=== PATIENT | female | born 2000 | race Caucasian/White ===

== ENCOUNTER 2020-10-11 10:09 | Emergency (ER) | payer OTHER, SELFPAY ==
--- NOTE | ~2020-10-11 | CT_ITS ---
EXAMINATION: CT brain wo con INDICATION: Head injury and vomiting COMPARISON: None TECHNIQUE: Standard unenhanced head CT. The dose-length product (DLP) was 605.33 mGy-cm. The mA was a djusted according to patient size. Iterative reconstruction technique was employed. FINDINGS: There is no intracranial hemorrhage, acute infarction, or abnormal mass lesion. The ventric les are normal. There is no abnormal mass effect or midline shift. The camacho-white matter differentiat ion is normal. The basal cisterns are patent. The orbits are normal. There is a tiny polyp in the lef t sphenoid sinus. IMPRESSION: 1. No acute intracranial abnormality. Reviewed, dictated and finalized at location A.
[2020-10-11 10:24] VITALS: BP 127/72; PULSE 67; RESP 15; TEMP 37.1; O2SAT 99
[2020-10-11 10:55] VITALS: BP 120/74; PULSE 70; RESP 15; O2SAT 100
--- NOTE | 2020-10-11 10:55 | PC.NURSE ---
Pt to CT.
--- NOTE | 2020-10-11 10:59 | ED.HEATRA ---
HPI - Head Injury General Chief complaint: Head Injury Stated complaint: head injury Time Seen by Provider: 10/11/20 10:35 Source: patient and RN notes reviewed Mode of arrival: ambulatory Limitations: no limitations History of Present Illness HPI Narrative: This is a 20 year old female who presents for evaluation of a head injury. She states last night she was walking her dog when she was yanked into a pole. She hit the right posterior side of head last night around 1900. She denies LOC. She states she had mild headache last night. Today she reports headache, dizziness, and multiple episodes of vomiting. She reports he has headache now from vomiting. She denies focal weakness, numbness, tingling. She denies abdominal pain or diarrhea. Related Data Allergies Allergy/AdvReac Type Severity Reaction Status Date / Time hydrocodone Allergy Unknown Nausea And Verified 10/11/20 10:27 Vomiting vancomycin Allergy Unknown Hives / Verified 10/11/20 10:27 Red Face amoxicillin Allergy Hives Verified 10/11/20 10:27 acetaminophen AdvReac Unknown Vomiting Verified 10/11/20 10:27 Cat Dander Allergy Unknown unknown Uncoded 06/28/20 14:19 Dog Dander Allergy Unknown Unknown Uncoded 06/28/20 14:19 Molds and Smuts Allergy Unknown Unknown Uncoded 06/28/20 14:19 Review of Systems Review of Systems: All systems reviewed & are unremarkable except as noted in HPI and below PMFSH Past Medical History Medical History (Updated 10/11/20 @ 12:33 by Korina Gutiérrez MD) Anxiety Surgical History Surgical History H/O knee surgery [place] teeth removed Family History Family History Mother Family history of mental disorder Grandparent Hypertension Family history of malignant neoplasm of breast Sibling Family history of anemia Social History Social History Smoking status: Never smoker Second hand tobacco smoke exposure: No Alcohol intake: never Exam Const: General: no acute distress and alert Orientation/consciousness: patient oriented x3 HENMT: Head: normocephalic and atraumatic Face and sinus: normal facial exam, sinuses nontender and face symmetric Mouth: Yes Normal oral and palatal mucosa present, Yes lip normal, Yes oropharynx normal and Yes moist mucous membranes Eyes: Pupils: Equal, round and reactive pupils present EOM: EOMs intact bilaterally Resp: Effort & Inspection: normal respiratory effort and no retractions Auscultation: clear to auscultation bilaterally Cardio: Rate: regular rate Rhythm: regular rhythm Heart sounds: no murmurs GI: GI Palp: Yes Soft to palpation, No Tenderness to palpation present (GI) and No Guarding due to palpation present (GI) Auscultation: normal bowel sounds Skin: General skin exam: normal color Rashes: no rashes Neuro: General: patient oriented x3 and moves all extremities Cranial nerves: Yes CN's II-XII intact bilaterally Psych: Mental Status: mental status grossly normal Affect: normal affect Course Reevaluation(s) Reevaluation #1: Patient states she feels better. I discussed CT scan was unremarkable. Date: 10/11/20 Time: 12:32 Vital Signs Vital signs: Vital Signs Temperature 98.7 F 10/11/20 10:24 Pulse Rate 67 10/11/20 10:24 Respiratory Rate 15 10/11/20 10:24 Blood Pressure 127/72 10/11/20 10:24 Pulse Oximetry 99 10/11/20 10:24 Temperature 98.7 F 10/11/20 10:24 Pulse Rate 61 10/11/20 12:49 Respiratory Rate 16 10/11/20 12:49 Blood Pressure 118/90 10/11/20 12:49 Pulse Oximetry 100 10/11/20 12:49 MDM - Head Injury Lab Data Labs: Lab Results 10/11/20 Range/Units 10:55 Urine Color Straw (Yellow) Urine Appearance Clear (Clear) Urine pH 6.0 (5.0-9.0) Ur Specific [place] 1.008 (1.001-1.035) Urine Protein
[2020-10-11] MEDS: SODIUM CHLORIDE 0.9% IV 1,000 ML 999 ML IV CONT (11:06)
[2020-10-11] MEDS: ONDANSETRON INJ 4 MG/2 ML VIAL IV PUSH (11:06)
[2020-10-11 11:07] LABS: Add Urine Microscopic? NO; Appearance Urine Clear (Clear); Bilirubin Urine Negative (Negative); Blood Urine Negative (Negative); Color Urine Straw (Yellow); Glucose Urine UA Negative (Negative); Ketones Urine Negative (Negative); Leukocyte Esterase Ur Negative LEU/UL (Negative); Nitrate Urine Negative (Negative); Protein Urine Negative (Negative); Specific Grav Ur 1.008 (1.001-1.035); Urobilinogen Urine Negative mg/dL (<2.0)
[2020-10-11 12:14] VITALS: BP 118/90; PULSE 61; RESP 16; O2SAT 100
[2020-10-11 12:49] VITALS: BP 118/90; PULSE 61; RESP 16; O2SAT 100
== END 2020-10-11 12:51 | disposition home or self-care (01) ==
PROVIDERS: Emergency Provider General Practice; PCP Family Medicine
DX: S06.0X0A Concussion without loss of consciousness, initial encounter (principal); Y93.K1 Activity, walking an animal; W22.09XA Striking against other stationary object, initial encounter
CPT/HCPCS: 70450; 81003; 81025; 96365; 96375; 99284; J0131; J2405; J7030

== ENCOUNTER 2022-08-22 16:42 | Emergency (ER) | payer BC, SELFPAY ==
--- NOTE | ~2022-08-22 | XR_ITS ---
EXAMINATION: XR chest 2V Exam Date/Time: 08/22/2022 17:25 CDT HISTORY: cough , sob, fever hx asthma Comparison: 12/01/2018. RESULT: Lines, tubes, and devices: None. Lungs and pleura: Clear. Cardiomediastinal silhouette: Stable. Other: No acute osseous or upper abdominal finding. Chronic 3.4 cm rim calcified lesion in the left upper quadrant. IMPRESSION: No acute cardiopulmonary process. Reviewed, dictated and finalized at location K.
[2022-08-22 16:49] VITALS: BP 119/79; PULSE 123; RESP 16; TEMP 36.8; O2SAT 99
[2022-08-22 17:37] VITALS: PULSE 107; RESP 20; O2SAT 98
[2022-08-22] MEDS: IPRATROPIUM BR 0.02% INH SOLN 0.5 MG/2.5 ML VIAL INHALATION (17:38)
[2022-08-22] MEDS: ALBUTEROL SULFATE NEB 2.5 MG/3 ML INH INHALATION (17:38)
--- NOTE | 2022-08-22 17:51 | ED.URI ---
HPI - URI/Sore Throat General Chief Complaint: Upper Respiratory Infection Stated Complaint: shortness of breath,cough,sore throat,fever Time Seen by Provider: 08/22/22 17:20 Source: patient and RN notes reviewed Mode of arrival: ambulatory Limitations: no limitations History of Present Illness HPI Narrative: Patient presents today complaining 4 day history of cough and shortness of breath with chills, headache, nasal congestion. She had a fever for the past 2 days, but none today. T-max was 101?. She has been taking DayQuil and ibuprofen without much relief. She called her PCP's office and had a course of steroids and cough medicine sent in for her yesterday, but states they have not taken affect yet. History of asthma for which she uses an albuterol inhaler as needed. States she has run out of her albuterol nebulizer solution. Related Data Home Medications Medication Instructions Recorded Confirmed fluoxetine 20 mg capsule 20 mg PO DAILY 07/26/21 08/22/22 olanzapine 5 mg tablet 5 mg PO DAILY 07/26/21 08/22/22 albuterol sulfate 90 mcg/actuation 2 inh inhalation Q4H PRN Cough 08/22/22 08/22/22 aerosol inhaler benzonatate 100 mg capsule 100 mg PO TID PRN Cough 08/22/22 08/22/22 prednisone 20 mg tablet 60 mg PO DAILY 08/22/22 08/22/22 spironolactone 100 mg tablet 100 mg PO DAILY 08/22/22 08/22/22 Allergies Allergy/AdvReac Type Severity Reaction Status Date / Time hydrocodone Allergy Unknown Nausea And Verified 08/22/22 16:58 Vomiting vancomycin Allergy Unknown Hives / Verified 08/22/22 16:58 Red Face amoxicillin Allergy Hives Verified 08/22/22 16:58 acetaminophen AdvReac Unknown Vomiting Verified 08/22/22 16:58 Cat Dander Allergy Unknown unknown Uncoded 08/22/22 16:58 Dog Dander Allergy Unknown Unknown Uncoded 08/22/22 16:58 Molds and Smuts Allergy Unknown Unknown Uncoded 08/22/22 16:58 Review of Systems Review of Systems: CONSTITUTIONAL: + body aches, fever, chills EYES: Denies visual changes, redness, or discharge. ENT: Denies rhinorrhea, sore throat, or otalgia.+ congestion CARDIOVASCULAR: Denies chest pain, palpitations, or edema. RESPIRATORY: + shortness of breath, cough GASTROINTESTINAL: Denies abdominal pain, nausea, vomiting, or diarrhea. GENITOURINARY: Denies dysuria or hematuria. SKIN: Denies rash, itching, or wounds. MUSCULOSKELETAL: Denies back pain, joint pain, or myalgia. NEUROLOGIC: Denies numbness, tingling, or weakness.+ headache PSYCH: Denies depression or anxiety. [facility] Past Medical History Medical History (Updated 08/22/22 @ 18:02 by Charisse Calvillo, [employer], ) Anxiety Asthma Surgical History Surgical History H/O knee surgery [place] teeth removed Family History Family History Mother Family history of mental disorder Grandparent Hypertension Family history of malignant neoplasm of breast Sibling Family history of anemia Social History Social History Second hand tobacco smoke exposure: No Alcohol intake: current Alcohol use details: Very rarely Substance use: current Substance use type: marijuana Gender identity (if verbalized by the patient): Female Comments At time of signature, I have reviewed and agree with nursing past medical, surgical, social and family history unless otherwise noted. Please see nursing chart for further information. There is no relevant family history pertinent to the presenting complaint Exam Narrative: GENERAL: Mildly ill-appearing, well-nourished,Tearful HEAD: Normocephalic, atraumatic. EYES: EOMI. No redness or drainage. Conjunctivae normal. ENT: Mucous membranes pink and moist. Nares congested. No rhinorrhea. TMs normal bilaterally. Throat normal. Uvula midline. NECK: Normal AROM. Supple. No lymphadenopathy. CHEST: No respiratory distress. Cl
[2022-08-22 18:05] VITALS: PULSE 115; RESP 20; O2SAT 100
== END 2022-08-22 18:13 | disposition home or self-care (01) ==
PROVIDERS: Emergency Provider Nurse Practitioner; PCP Family Medicine
DX: J06.9 Acute upper respiratory infection, unspecified (principal); J45.901 Unspecified asthma with (acute) exacerbation; F12.90 Cannabis use, unspecified, uncomplicated; F41.9 Anxiety disorder, unspecified
CPT/HCPCS: 71046; 94640; 99213; G0463

== ENCOUNTER → 2022-08-28 14:46 | Outpatient (CLI) | payer BC, SELFPAY ==
--- NOTE | ~2022-08-28 | US_ITS ---
US abdomen limited 08/28/2022 15:26 Indication: Follow-up abnormal x-ray Procedure: Real-time high-resolution ultrasound of the left upper abdomen Comparison: Chest x-ray dated 08/22/2022 Findings: There is a peripherally calcified mass in the spleen measuring 3 to x3.2 x 2.8 cm with low- level internal echoes, most likely a calcified splenic cyst. This corresponds to the mass seen on x-r ay. No other discrete splenic masses are identified. Spleen measures 11.9 cm in length. No evidence f or splenic artery aneurysm. 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 Reviewed, dictated and finalized at location L. 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
== END ==
PROVIDERS: PCP Family Medicine; Visit Provider Family Medicine
DX: D73.4 Cyst of spleen (principal)
CPT/HCPCS: 76705

== ENCOUNTER 2023-04-08 09:00 | Outpatient (CLI) | payer BC, SELFPAY ==
--- NOTE | ~2023-04-08 | CT_ITS ---
CT Angiogram of the Abdomen: Indication: Unspecified injury of branches of celiac and splenic artery Technique: 2.5 mm axial scans were obtained through the abdomen following intravenous administration of 100 cc of Omnipaque 350. Dose reduction technique was used on this scan by utilizing automated ex posure control and iterative reconstruction technique. The dose-length product (DLP) was 158.39 mGy-c m. Findings: Scans through the lung bases are unremarkable. The liver, pancreas, gallbladder, adrenals and kidneys are within normal limits. There is a splenic c yst present with coarse peripheral eggshell calcification. No evidence of aortic aneurysm. The common hepatic artery arises directly from the aorta, rather than from the celiac, otherwise no significant vascular abnormality identified. No lymphadenopathy. Visualized bowel loops are unremarkable. No ascites. Impression: Common hepatic artery arises directly from aorta, rather than the celiac, most likely normal variant, otherwise no significant vascular abnormality seen. Reviewed, dictated and finalized at [facility]. 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
== END 2023-04-08 09:01 ==
LOC: GOSHIMG 09:01
PROVIDERS: PCP Family Medicine; Visit Provider Family Medicine
DX: S35.299A Unspecified injury of branches of celiac and mesenteric artery, initial encounter (principal); X58.XXXA Exposure to other specified factors, initial encounter
CPT/HCPCS: 74175; Q9967

== ENCOUNTER 2024-02-11 12:53 | Outpatient (CLI) | payer BC, SELFPAY ==
--- NOTE | ~2024-02-11 | CT_ITS ---
EXAMINATION: CT abdomen pelvis w con DATE: 02/11/2024 13:37 INDICATION: Right lower quadrant abdominal pain TECHNIQUE: Computed tomography (CT) of the abdomen and pelvis was performed with 100 mL Omnipaque-350 intravenous contrast. Automated exposure control and iterative reconstruction technique were employe d. The dose-length product was 202.77 mGy-cm. COMPARISON: 04/08/2023 FINDINGS: Lung bases are clear. Heart size is normal. No pericardial or pleural effusion. Couple small regions of focal hepatic steatosis along the ligamentum teres and gallbladder fossa. Gallbladder, pancreas, b ilateral adrenal glands and kidneys are normal. Stable appearance of a 3 cm chronic rim calcified spl enic cyst which could represent sequela of old trauma or infection. Bowels including the appendix are normal with no abnormal wall thickening or obstruction. Bladder, anteverted uterus and right adnexa are normal. 1.5 cm peripherally enhancing corpus luteum cyst at the left ovary. Small amount of physi ologic free fluid in the cul-de-sac. No abscess or free intraperitoneal gas. No pathologically enlarg ed abdominal or pelvic lymphadenopathy. Mild lower thoracic spondylosis. IMPRESSION: 1. Small amount of likely physiologic free fluid in the cul-de-sac and 1.5 cm likely corpus luteum cy st in the left ovary. No other acute intra-abdominal/pelvic process. Specifically the appendix is nor mal. Reviewed, dictated and finalized at location A. 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 Small amount of likely physiologic free fluid in the cul-de-sac and 1.5 cm l ikely corpus luteum cyst in the left ovary. No other acute intra-abdominal/pelv ic process. Specifically the appendix is normal.
== END 2024-02-11 12:54 | disposition home or self-care (01) ==
PROVIDERS: PCP Family Medicine; Visit Provider Nurse Practitioner Family
DX: R10.31 Right lower quadrant pain (principal)
CPT/HCPCS: 74177; Q9967

== ENCOUNTER 2024-08-20 12:55 | Outpatient (CLI) | payer BC, SELFPAY ==
--- NOTE | ~2024-08-20 | US_ITS ---
EXAMINATION: US pelvic complete w TV INDICATION: Right lower quadrant pain Comparison:No prior studies for comparison. TECHNIQUE: Multiple transabdominal and endovaginal sonographic images of the pelvis performed. FINDINGS: The uterus measures 7.7 x 3.6 x 3.8 cm. The endometrial complex measures 8 mm. The right ovary measures 3 x 3 x 1.8 cm and the left ovary measures 2.5 x 1.4 x 2.4 cm. There are sm all follicles in each ovary. Normal doppler signal in both ovaries. There is no free fluid in the pelvis. There are no abnormal masses seen on either side. IMPRESSION: 1. Unremarkable pelvic ultrasound. Reviewed, dictated and finalized at location B.
== END 2024-08-20 12:56 | disposition home or self-care (01) ==
PROVIDERS: PCP Nurse Practitioner Family; Visit Provider Nurse Practitioner Family
DX: R10.2 Pelvic and perineal pain (principal); R10.31 Right lower quadrant pain
CPT/HCPCS: 76830; 76856